=== PATIENT | female | born 2000 | race Caucasian/White ===

== ENCOUNTER 2020-04-19 18:51 | Emergency (ER) | payer OTHER ==
[~2020-04-19] VITALS: Ht 160 cm; Wt 72.6 kg
== END 2020-04-19 22:48 | disposition home or self-care (01) ==
LOC: ER 18:51
DX: S61.210A Laceration without foreign body of right index finger without damage to nail, initial encounter (principal); Z23 Encounter for immunization; W26.0XXA Contact with knife, initial encounter
CPT/HCPCS: 12001; 90471; 90714; 99282-25

== ENCOUNTER → 2021-04-22 | Outpatient (CLI) | payer OTHER ==
[2021-04-22 13:45] LABS: BASOPHILS ABSOLUTE AUTO 0.05 K/mm3 (0.00-0.23); BASOPHILS PERCENT AUTO 1 % (0-2); EOSINOPHILS ABSOLUTE AUTO 0.05 K/mm3 (0.00-0.68); EOSINOPHILS PERCENT AUTO 1 % (0-6); Hematocrit 42.5 % (33.0-51.0); IMMATURE GRAN ABSOLUTE AUTO 0.02 K/mm3 (0.00-0.10); IMMATURE GRAN PERCENT AUTO 0 % (0-1); LYMPHOCYTES ABSOLUTE AUTO 1.92 K/mm3 (0.84-5.20); LYMPHOCYTES PERCENT AUTO 27 % (21-46); MONOCYTES ABSOLUTE AUTO 0.42 K/mm3 (0.16-1.47); MONOCYTES PERCENT AUTO 6 % (4-13); Mean Corpuscular HGB Conc 32.9 g/dL (31.5-36.5); Mean Corpuscular Volume 88 fL (80-100); Mean Platelet Volume 11.3 fL (9.1-12.4); NEUTROPHILS ABSOLUTE AUTO 4.63 K/mm3 (1.96-9.15); NEUTROPHILS PERCENT AUTO 65 % (41-73); Platelet Count 224 K/mm3 (150-400); RDW Coefficient Variation 12.2 % (11.7-14.2); Red Blood Cell Count 4.83 M/mm3 (3.80-5.20); White Blood Cell Count 7.09 K/mm3 (4.00-11.30)
[2021-04-22 14:02] LABS: Alanine Aminotransfer (ALT/SGP 28 U/L (12-78); Albumin/Globulin Ratio 0.9 (0.8-1.8); Alk Phos 75 U/L (50-136); Anion Gap 5 mmol/L (6-16); Aspartate Aminotrans (AST/SGOT 21 U/L (12-37); Bilirubin, Total 0.6 mg/dL (0.1-1.0); Blood Urea Nitrogen 13 mg/dL (8-24); Bun/Creatinine Ratio 20.8 (12.0-20.0); CO2, Blood 27 mmol/L (21-32); Calcium, Blood 9.7 mg/dL (8.5-10.1); Chloride, Blood 104 mmol/L (98-108); Creatinine, Blood 0.63 mg/dL (0.40-1.00); Globulin, Blood 4.4 g/dL (2.2-4.0); Glomerular Filtration Rate >60 (60-); Glucose, Blood 81 mg/dL (70-99); Potassium, Blood 3.7 mmol/L (3.5-5.5); Sodium, Blood 136 mmol/L (136-145); Total Protein, Blood 8.4 g/dL (6.4-8.2)
== END ==
LOC: LAB 12:15 → LAB SHORT 12:15
PROVIDERS: Physician Assistant
DX: R10.9 Unspecified abdominal pain (principal); R53.83 Other fatigue; R04.0 Epistaxis
CPT/HCPCS: 80053; 84443; 85025; 87086

== ENCOUNTER 2022-05-24 09:09 | Emergency (ER) | payer BC, OTHER ==
[~2022-05-24] VITALS: Ht 160 cm; Wt 81.7 kg
== END 2022-05-24 11:55 | disposition left against medical advice (07) ==
LOC: ER 09:09
DX: R11.0 Nausea (principal); Z53.21 Procedure and treatment not carried out due to patient leaving prior to being seen by health care provider
CPT/HCPCS: 99281

== ENCOUNTER → 2022-10-13 | Outpatient (CLI) | payer BC, OTHER ==
[2022-10-15 02:07] LABS: CHLAMYDIA TRACHOMATIS, NAA Negative (Negative)
== END | disposition home or self-care (01) ==
LOC: LAB 10:47 → LAB SHORT 10:47
PROVIDERS: Advanced Practice Midwife
DX: Z11.3 Encounter for screening for infections with a predominantly sexual mode of transmission (principal)
CPT/HCPCS: 87491; 87591

== ENCOUNTER → 2023-10-13 | Outpatient (CLI) | payer BC, OTHER | END | disposition home or self-care (01) | LOC: LAB SHORT 09:42 | DX: Z32.00 Encounter for pregnancy test, result unknown (principal) | CPT/HCPCS: 84702 ==

== ENCOUNTER → 2023-10-31 | Outpatient (CLI) | payer BC, OTHER | END | disposition home or self-care (01) | LOC: LAB 13:13 → LAB SHORT 13:13 | DX: E55.9 Vitamin D deficiency, unspecified (principal); D50.9 Iron deficiency anemia, unspecified ==

== ENCOUNTER → 2024-03-19 | Outpatient (CLI) | payer BC, OTHER ==
[2024-03-22 12:02] LABS: ALLERGEN, BAKER'S YEAST IGG 5.46 mcg/mL (<=11.40); ALLERGEN, FOOD, CASEIN IGG 6.12 mcg/mL (<=38.69); ALLERGEN, FOOD, CHICKEN IGG <2.00 mcg/mL (<=6.24); ALLERGEN, FOOD, CHOCOLATE IGG 4.87 mcg/mL (<=20.40); ALLERGEN, FOOD, LETTUCE IGG 4.54 mcg/mL (<=11.30); ALLERGEN, FOOD, OAT IGG 9.27 mcg/mL (<=13.29); ALLERGEN, FOOD, ORANGE IGG 2.56 mcg/mL (<=8.64); ALLERGEN, FOOD, PEANUT IGG 2.46 mcg/mL (<=6.79); ALLERGEN, FOOD, PORK IGG 3.67 mcg/mL (<=7.91); ALLERGEN, FOOD, POTATO WHITE I 2.32 mcg/mL (<=6.08); ALLERGEN, FOOD, RYE IGG 7.36 mcg/mL (<=26.70); ALLERGEN, FOOD, SOYBEAN IGG <2.00 mcg/mL (<=5.29); ALLERGEN, FOOD, TOMATO IGG 2.36 mcg/mL (<=7.19); ALLERGEN, FOOD, WHEAT IGG 6.05 mcg/mL (<=60.19)
== END ==
LOC: LAB 12:40 → LAB SHORT 12:40
PROVIDERS: Nurse Practitioner Family
DX: R14.0 Abdominal distension (gaseous) (principal); R10.9 Unspecified abdominal pain; R19.5 Other fecal abnormalities
CPT/HCPCS: 86001

== ENCOUNTER → 2024-05-11 | Outpatient (CLI) | payer BC, OTHER | LOC: LAB SHORT 11:53 → LAB 11:53 | PROVIDERS: Advanced Practice Midwife | DX: Z01.419 Encounter for gynecological examination (general) (routine) without abnormal findings (principal) | CPT/HCPCS: G0123 ==

== ENCOUNTER → 2024-07-11 | Outpatient (CLI) | payer BC, OTHER ==
[~2024-07-11] MED LIST: BUSPIRONE HCL30 M1 PO; HYDHCL25 PO; Loratadine10 MG PO; ONDA4 PO
[2024-07-14 14:41] LABS: CALPROTECTIN,FECAL 58 ug/g (<=49)
== END ==
LOC: LAB SHORT 18:25 → LAB 18:25
PROVIDERS: Nurse Practitioner Family
DX: R10.84 Generalized abdominal pain (principal); R19.4 Change in bowel habit
CPT/HCPCS: 83993

== ENCOUNTER → 2024-07-12 | Outpatient (CLI) | payer BC, OTHER ==
[2024-07-12 11:08] LABS: Alanine Aminotransfer (ALT/SGP 26 U/L (12-78); Albumin, Blood 3.7 g/dL (3.4-5.0); Albumin/Globulin Ratio 0.8 (0.8-1.8); Alk Phos 79 U/L (50-136); Aspartate Aminotrans (AST/SGOT 16 U/L (12-37); Bilirubin, Direct <0.1 mg/dL (0.0-0.3); Bilirubin, Indirect Unable to Calculate mg/dL (0.1-0.7); Bilirubin, Total 0.3 mg/dL (0.1-1.0); Globulin, Blood 4.6 g/dL (2.2-4.0); Total Protein, Blood 8.3 g/dL (6.4-8.2)
[2024-07-13 21:20] LABS: IMMUNOGLOBULIN A 177 mg/dL (68-408)
[2024-07-14 04:40] LABS: TISSUE TRANSGLUTAMINAS TTG,IGA <1.02 FLU (0.00-4.99)
[2024-07-14 11:10] LABS: ENDOMYSIAL ANTIBODY, IGA TITER <1:10 (<1:10)
== END ==
LOC: LAB SHORT 10:17 → LAB 10:17
PROVIDERS: Nurse Practitioner Family
DX: R10.84 Generalized abdominal pain (principal)
CPT/HCPCS: 80076; 82784; 86140; 86231; 86364

== ENCOUNTER 2024-07-14 08:00 | Day surgery (SDC) | payer BC, OTHER ==
[~2024-07-14] VITALS: Ht 157.5 cm; Wt 87.2 kg
[~2024-07-14 08:00] MED LIST changes: -BUSPIRONE HCL30 M1 PO; -HYDHCL25 PO; +Lactated Ringer's 1,000 ML IV ONE; -Loratadine10 MG PO; -ONDA4 PO; +propofoL 50 ML IV ONE
[2024-07-14] MEDS ORDERED: BUSPIRONE HCL30 M1 PO (08:23)
[2024-07-14] MEDS ORDERED: HYDHCL25 PO (08:23)
[2024-07-14] MEDS ORDERED: Loratadine10 MG PO (08:23)
[2024-07-14] MEDS ORDERED: ONDA4 PO (08:24)
[2024-07-14] MEDS ORDERED: Lactated Ringer's 1,000 ML IV ONE (09:03)
--- NOTE | 2024-07-14 09:06 | NUR ---
07/14/24 0906 Triny Haines PT EXPRESSES BEING EXTREMELY NERVOUS, INTERMITTENTLY CRYING, HR 110S-120S RESTING IN PRE-OP. PT STATES SHE IS ALLERGIC TO VERSED, PT REPORTS SHE "GETS COMBATIVE AND IF YOU USE IT YOU MIGHT HAVE TO PUT ME IN RESTRAINTS.". MD ASSESSING PT, PT MAY NEED TO BE CHANGED TO MAC.
[2024-07-14] MEDS ORDERED: propofoL 50 ML IV ONE ×2 (09:13→09:34)
--- NOTE | 2024-07-14 10:02 | NUR ---
07/14/24 1002 Triny Haines DELAY TO TRANSFER PT TO SDU, PT SLOW TO WAKE.
[2024-07-14 10:21] VITALS: BP 129/89
== END 2024-07-14 10:56 | disposition home or self-care (01) ==
LOC: ORSCSDS 08:00
DX: R19.5 Other fecal abnormalities (principal); D50.9 Iron deficiency anemia, unspecified; K29.50 Unspecified chronic gastritis without bleeding; R10.11 Right upper quadrant pain; R10.31 Right lower quadrant pain; R19.4 Change in bowel habit; K44.9 Diaphragmatic hernia without obstruction or gangrene; K64.8 Other hemorrhoids; K21.9 Gastro-esophageal reflux disease without esophagitis; Z79.899 Other long term (current) drug therapy
CPT/HCPCS: 88305; 88342; J2704; J7120

== ENCOUNTER → 2024-08-16 | Outpatient (CLI) | payer BC, OTHER ==
[~2024-08-16] MED LIST changes: +BUSPIRONE HCL30 M1 PO; +HYDHCL25 PO; -Lactated Ringer's 1,000 ML IV ONE; +Loratadine10 MG PO; +ONDA4 PO; -propofoL 50 ML IV ONE
[2024-08-20 14:36] LABS: CALPROTECTIN,FECAL 89 ug/g (<=49)
== END | disposition home or self-care (01) ==
LOC: LAB 16:45 → LAB SHORT 16:45
PROVIDERS: Nurse Practitioner Family
DX: K29.70 Gastritis, unspecified, without bleeding (principal); D50.9 Iron deficiency anemia, unspecified
CPT/HCPCS: 83993

== ENCOUNTER → 2025-03-06 | Outpatient (CLI) | payer BC, OTHER ==
[~2025-03-06] MED LIST changes: +CEPH500 PO; +ONDA4ODT MM
[2025-03-06 20:12] LABS: Campylobacter Sp Not Detected (NOT DETECT); E. Coli O157 Not Detected (NOT DETECT); Enteroaggregative E. coli-EAEC Not Detected (NOT DETECT); Enteropathogenic E. coli-EPEC Not Detected (NOT DETECT); Enterotoxigenic E. coli-ETEC Not Detected (NOT DETECT); Salmonella Sp Not Detected (NOT DETECT); Shiga Toxin-prod E. coli-STEC Not Detected (NOT DETECT); Vibrio Sp Not Detected (NOT DETECT)
[2025-03-06 20:13] LABS: Shigella/Enteroin E. coli-EIEC Not Detected (NOT DETECT)
[2025-03-09 15:21] LABS: FAT, FECAL - NEUTRAL Normal (Normal); FAT, FECAL - SPLIT Normal (Normal)
[2025-03-14 10:46] LABS: PANCREATIC ELASTASE,FECAL >800 ug/g (>=100)
[2025-03-14 11:11] LABS: CALPROTECTIN,FECAL 10 ug/g (<=49)
== END | disposition home or self-care (01) ==
LOC: LAB SHORT 12:24 → LAB 12:24
PROVIDERS: Nurse Practitioner Family
DX: R19.4 Change in bowel habit (principal)
CPT/HCPCS: 82653; 82705; 83993; 87507

== ENCOUNTER → 2025-04-07 | Outpatient (CLI) | payer BC, OTHER | LOC: LAB SHORT 05:50 → LAB 05:50 | DX: N39.0 Urinary tract infection, site not specified (principal) | CPT/HCPCS: 87077; 87086; 87186 ==

== ENCOUNTER → 2025-05-17 | Outpatient (CLI) | payer BC, OTHER ==
[~2025-05-17] MED LIST changes: +AMOCLA875 PO; +FLUC200 PO; +OXYB5 PO
== END ==
LOC: LAB 12:03 → LAB SHORT 12:03
PROVIDERS: Advanced Practice Midwife
DX: Z01.419 Encounter for gynecological examination (general) (routine) without abnormal findings (principal); R30.0 Dysuria
CPT/HCPCS: 87077; 87086; 87186; G0145

== ENCOUNTER 2025-05-22 13:04 | Emergency (ER) | payer BC, OTHER ==
[~2025-05-22] VITALS: Ht 160 cm; Wt 77.1 kg
[~2025-05-22 13:04] MED LIST changes: -AMOCLA875 PO; -FLUC200 PO; -OXYB5 PO
[2025-05-22 14:09] VITALS: BP 147/98
[2025-05-22 14:50] LABS: BASOPHILS ABSOLUTE AUTO 0.07 K/mm3 (0.00-0.23); BASOPHILS PERCENT AUTO 1 % (0-2); EOSINOPHILS ABSOLUTE AUTO 0.10 K/mm3 (0.00-0.68); EOSINOPHILS PERCENT AUTO 1 % (0-6); Hematocrit 45.3 % (33.0-51.0); Hemoglobin 14.9 g/dL (11.5-16.0); IMMATURE GRAN ABSOLUTE AUTO 0.04 K/mm3 (0.00-0.10); IMMATURE GRAN PERCENT AUTO 0 % (0-1); LYMPHOCYTES ABSOLUTE AUTO 2.36 K/mm3 (0.84-5.20); LYMPHOCYTES PERCENT AUTO 26 % (21-46); MONOCYTES ABSOLUTE AUTO 0.54 K/mm3 (0.16-1.47); MONOCYTES PERCENT AUTO 6 % (4-13); Mean Corpuscular HGB Conc 32.9 g/dL (31.5-36.5); Mean Corpuscular Volume 93 fL (80-100); NEUTROPHILS ABSOLUTE AUTO 6.06 K/mm3 (1.96-9.15); NEUTROPHILS PERCENT AUTO 66 % (41-73); NRBC ABSOLUTE 0.00 K/mm3 (0.00-0.02); NRBC Auto 0.0 /100 WBC (0.0-0.2); Platelet Count 253 K/mm3 (150-400); RDW Coefficient Variation 12.3 % (11.7-14.2); RDW Standard Deviation 41.8 fL (35.1-46.3)
[2025-05-22 15:15] LABS: Alanine Aminotransfer (ALT/SGP 47.0 U/L (12-78); Albumin, Blood 4.3 g/dL (3.4-5.0); Albumin/Globulin Ratio 0.9 (0.8-1.8); Anion Gap 8.0 mmol/L (3-11); Aspartate Aminotrans (AST/SGOT 23.0 U/L (12-37); Bilirubin, Total 0.5 mg/dL (0.1-1.0); Blood Urea Nitrogen 13.0 mg/dL (8-24); CO2, Blood 26.0 mmol/L (21-32); Calcium, Blood 9.4 mg/dL (8.5-10.1); Chloride, Blood 104.0 mmol/L (98-108); Creatinine, Blood 0.51 mg/dL (0.40-1.00); Globulin, Blood 4.7 g/dL (2.2-4.0); Glucose, Blood 87.0 mg/dL (70-99); Potassium, Blood 3.8 mmol/L (3.5-5.5); Sodium, Blood 134.0 mmol/L (136-145); Total Protein, Blood 9.0 g/dL (6.4-8.2)
[2025-05-22] MEDS ORDERED: FLUC200 PO (16:31)
[2025-05-22] MEDS ORDERED: AMOCLA875 PO (16:31)
[2025-05-22] MEDS ORDERED: OXYB5 PO (16:45)
== END 2025-05-22 16:48 | disposition home or self-care (01) ==
LOC: ER 13:04
PROVIDERS: Physician Assistant
DX: N39.0 Urinary tract infection, site not specified (principal); N32.89 Other specified disorders of bladder; B96.89 Other specified bacterial agents as the cause of diseases classified elsewhere; Z16.12 Extended spectrum beta lactamase (ESBL) resistance; Z79.899 Other long term (current) drug therapy; Z91.030 Bee allergy status; Z88.8 Allergy status to other drugs, medicaments and biological substances; Z88.1 Allergy status to other antibiotic agents
CPT/HCPCS: 80053; 85025; 99283; A9270